=== PATIENT | female | born 1930 | race Caucasian/White ===

== ENCOUNTER 2017-01-19 19:12 | Emergency (ER) | payer MEDICARE ==
[2017-01-19 19:37] VITALS: BP 110/46
[2017-01-19] MEDS ORDERED: cefTRIAXone SODIUM 1 GM VIAL ONE (19:58)
[2017-01-19] MEDS ORDERED: Lidocaine 1% 5ml(IM or SUTURE)(PAIN CLINIC) ONE (19:58)
[2017-01-19] MEDS ORDERED: BENZONATATE 100 MG CAPSULE PO ONE (20:00)
[2017-01-19] MEDS ORDERED: HYDROmorphone HCL/PF 1 MG/ML DISP.SYRIN IVP ONE (20:36)
[2017-01-19] MEDS ORDERED: ONDANSETRON HCL/PF 4 MG/ 2ML VIAL IVP ONE (20:36)
[2017-01-19] MEDS ORDERED: 0.9 % SODIUM CHLORIDE 1,000 ML IV ONE (20:59)
[2017-01-19] MEDS ORDERED: 0.9 % SODIUM CHLORIDE 1,000 ML IV SCH (21:00)
[2017-01-19 21:01] LABS: BASOPHILS % 0.3 (0.0-1.5); EOSINOPHILS % 0.8 % (0.0-6.8); MEAN CORPUSCULAR HEMOGLOBIN 31.4 pg (28.0-34.0); MEAN CORPUSCULAR VOLUME 98.4 fl (80.0-100.0); MONOCYTES % 3.2 % (0.0-11.0); NEUTROPHILS # 7.6 # k/uL (1.4-7.7)
--- NOTE | 2017-01-19 21:06 | ED Physician Documentation ---
Fall - HISTORIAN Historian: patient - HPI Stated Complaint: fall/left leg pain Chief Complaint: Fall Additional Information: Pt. is an 86 y/o female fell from 3rd step at home landing on left hip and arm. Unable to ambulate or mve left elbow afterward. Onset: just prior to arrival Where: home Context: lost balance r: moderate Associated Symptoms:: no loss of consciousness Location of Pain/Injury: upper extremity (left elbow), hip (left) Injury to Right Extremity: none Injury to Left Extremity: elbow, hip Front/Back of Body, Lg (M[place]): 1 - pain 2 - pain Further Comments: no - ROS CONST: no problems NEURO: other (dementia). denies: dizziness, anxiety, depression MS/SKIN/LYMPH: other (abrasion left elbow) EYES/ENT: none CVS/RESP: none GI/: denies: problems urinating, nausea, vomiting - PAST HX Past History: A-Fib, other (atrial fibrillation, hyperlipidemia, right pelvic fracture) Immunizations: UTD Allergies/Adverse Reactions: Allergies Allergy/AdvReac Type Severity Reaction Status Date / Time Penicillins Allergy Verified 01/19/17 19:27 shellfish derived Allergy Verified 01/19/17 21:06 Home Medications: Ambulatory Orders Medication Instructions Recorded Unobtainable [Unobtainable] 01/19/17 - SOCIAL HX Smoking History: non-smoker Alcohol Use: none Drug Use: none - FAMILY HX Family History: no significant history - VITAL SIGNS Vital Signs: Vital Signs Temp Pulse Resp BP Pulse Ox 72 16 110/46 95 01/19/17 19:15 01/19/17 19:15 01/19/17 19:15 01/19/17 19:15 - REVIEWED ASSESSMENTS Nursing Assessment Reviewed: Yes Vitals Reviewed: Yes Procedures Location: left elbow Hand-Made Type: towel/randa Pre-Proc Neuro Vasc Exam: normal Post-Proc Neuro Vasc Exam: normal Progress - Results/Orders Results/Orders: cbc, cmp, pt/ptt/inr, left elbow and left hip x-ray ordered - Progress Progress: Pt. given 0.5 mg Dilaudid ivp and NS at 80 cc/hr in er, hip and elbow immobilized Critical Care Note - Critical Care Note Total Time (mins): 60 ED Results Lab/Radiology - Lab Results Lab Results: Lab Results 01/19/17 19:56 PT 20.6 Seconds H Seconds (9.4-11.6) INR 1.95 H (0.9-1.2) - Radiology Radiology Impressions: left elbow x-ray: intraarticular fracture distal left humerus with nondisplaced radial neck fracture. left hip x-ray: intertrochanteric fracture with moderate varous angulation - Orders Orders: ED Orders Category Date Time Status Place IV Lock 1T Care 01/19/17 20:36 Active ELBOW 3 VIEWS [RAD] Routine Exams 01/19/17 Taken PELVIS AP 1 OR 2 VIEWS [RAD] Stat Exams 01/19/17 Taken SHOULDER 2 VIEWS OR MORE [RAD] Stat Exams 01/19/17 Taken CBC/PLATELET/DIFF Routine Lab 01/19/17 20:55 Received CMP Routine Lab 01/19/17 20:55 Received PT-INR Routine Lab 01/19/17 19:56 Completed 0.9 % Sodium Chloride [Normal Saline] 1,000 ml Med 01/19/17 21:00 Ordered IV Q12H Benzonatate [Tessalon] Med 01/19/17 20:00 Discontinued 200 mg PO .STK-MED ONE HYDROmorphone HCL/PF [Dilaudid] Med 01/19/17 20:36 Discontinued 0.5 mg IVP NOW ONE Lidocaine 1% 5ml(IM or SUTURE) [Xylocaine] Med 01/19/17 19:58 Discontinued 50 mg .ROUTE .STK-MED ONE Ondansetron HCl/Pf [Zofran 4 mg/2 ml] Med 01/19/17 20:36 Discontinued 4 mg IVP NOW ONE cefTRIAXone SODIUM [Rocephin] Med 01/19/17 19:58 Discontinued 1 gm .ROUTE .STK-MED ONE guaiFENesin [Mucinex] Med 01/19/17 19:59 Discontinued 600 mg PO .STK-MED ONE Fall Physical Exam - Physical Exam General Appearance: moderate distress Head: non-tender, no swelling, no obvious injury. No: raccoon eyes, trauma Neck: non-tender, painless ROM, trachea midline Eye: ELIZA, EOMI, lids & conjunct. nml ENT: nml external inspection, no dental injury, no oral injury, airway nml Resp/CVS: chest non-tender, no ecchymosis, breath sounds nml, no resp. distress , heart sounds nml, rib tenderness Abdomen: soft, no organomegaly, normal bowel sounds, no abdominal bruit, no distension, non-tender Neuro: CN's nml as tested, other (demented/confused) Skin: other (abrasion left elbow) Back: normal inspection, no CVA tenderness, no vertebral tenderness Extremities: bony point-tenderness (left hip and left elbow), other (shortened externally roated left leg) Joint: limited ROM (left hip and elbow secondary to pain) - Shobha Coma Score Eyes Open: Spontaneous Speech: Confused Motor: Obeys Commands Discharge Clincal Impression: Hip fracture, left Qualifiers: Encounter type: initial encounter Fracture type: closed Qualified Code(s): S72.002A - Fracture of unspecified part of neck of left femur, initial encounter for closed fracture Elbow fracture Qualifiers: Encounter type: initial encounter Fracture type: closed Laterality: left Qualified Code(s): S42.402A - Unspecified fracture of lower end of left humerus , initial encounter for closed fracture Referrals: Primary Doctor,No [Primary Care Provider] - 2 Days Comments: Case discussed with [facility], Dr. Morris, accepts transfer for definitive orthopedic care Condition: Stable Disposition: 01 HOME, SELF-CARE Decision to Admit: NO Decision Time: 21:30
[2017-01-19 21:09] LABS: eGFR (African) > 60; eGFR (Non-African) > 60
[2017-01-19] MEDS ORDERED: TRIPLE ANTIBIOTIC OINTMENT PAC 1 PACKET TOP ONE (21:46)
--- NOTE | 2017-01-20 02:22 | Diagnostic Imaging Report ---
RUBI LUCERO [facility] [address] [facility].[address] [address] Report Submission Date: Jan 19, 2017 8:35:52 PM CDT Patient Study Name: TAWANNA MCELROY Date: Jan 19, 2017 8:16:44 PM CDT Modality Type: CR Gender: F Description: SHOULDER : 30 Institution: [facility] Physician: RUBI LUCERO Single view left shoulder HISTORY: Pain after fall FINDINGS: Minimal left acromioclavicular joint space widening is present, of uncertain chronicity. Osteopenia is observed. There is no definite evidence of fracture. Posterior glenohumeral dislocation cannot be excluded with a single AP view. IMPRESSION: Minimal left acromioclavicular joint space widening of uncertain chronicity. Posterior glenohumeral dislocation cannot be excluded with a single AP view. Electronically signed on Jan 19, 2017 8:35:52 PM CDT by: Jose SUE
--- NOTE | 2017-01-20 02:23 | Diagnostic Imaging Report ---
RUBI LUCERO [facility] [address] [facility].[address] [address] Report Submission Date: Jan 19, 2017 8:37:28 PM CDT Patient Study Name: TAWANNA MCELROY Date: Jan 19, 2017 8:01:23 PM CDT Modality Type: CR Gender: F Description: PELVIS : 30 Institution: [facility] Physician: RUBI LUCERO AP pelvis HISTORY: Left hip pain after fall FINDINGS: An acute left intertrochanteric fracture is present with moderate varus angulation. Extensive left hemipelvic Paget's disease is observed. Advanced multilevel lumbar spondylosis is present. L4 and L5 compression deformities cannot be excluded. A right inferior pubic ramus fracture deformity is of uncertain age. IMPRESSION: Acute left intertrochanteric fracture. Possible lower lumbar compression deformities and advanced lumbar spondylosis. Age-indeterminate right inferior pubic ramus fracture deformity. Left hemipelvic Paget's disease. Electronically signed on Jan 19, 2017 8:37:28 PM CDT by: Jose SUE
--- NOTE | 2017-01-20 02:23 | Diagnostic Imaging Report ---
RUBI LUCERO [facility] [address] [facility].[address] [address] Report Submission Date: Jan 19, 2017 8:39:13 PM CDT Patient Study Name: TAWANNA MCELROY Date: Jan 19, 2017 8:08:37 PM CDT Modality Type: CR Gender: F Description: UPPER EXTREMITY : 30 Institution: [facility] Physician: RUBI LUCERO Left elbow two views HISTORY: Pain after fall FINDINGS: The exam is limited due to nonstandard positioning. There is a mildly displaced intra-articular fracture through the distal left humerus, possibly involving both the capitellum and trochlea. A nondisplaced radial neck fracture cannot be excluded. IMPRESSION: Intra-articular distal left humerus fracture and equivocal radial neck fracture. Electronically signed on Jan 19, 2017 8:39:13 PM CDT by: Jose SUE
== END 2017-01-19 22:00 | disposition home or self-care (01) ==
LOC: ED 19:12
DX: S72.002A Fracture of unspecified part of neck of left femur, initial encounter for closed fracture (principal); S42.402A Unspecified fracture of lower end of left humerus, initial encounter for closed fracture; W19.XXXA Unspecified fall, initial encounter; Y93.9 Activity, unspecified; Y99.9 Unspecified external cause status
CPT/HCPCS: 72170; 73030; 73080; 80053; 85025; 85610; A9270; J0696; J1170; J2405; J7030; 96361; 96374; 96375; 99283; S1016